=== PATIENT | female | born 1965 | race Caucasian/White ===

== ENCOUNTER 2018-06-13 09:47 | Emergency (ER) | payer OTHER ==
[~2018-06-13] VITALS: Ht 160 cm; Wt 67.6 kg
[~2018-06-13 09:47] MED LIST: ADVIL COLD &1 TABLET PO; ALBUTEROL2.5 MG/3 M IH; ALLEGRA ALLERG180 MG PO; ASMANEX TWISTHALER IH; BENADRYL50 MG PO; EPIPEN 2-PAK 0.3 MG; HYDROCODON-ACE1 EAC1 PO; MOTRIN800 MG PO; NEXIUM40 MG PO; NORCO 5/3251 TABLET PO; PHENOBARBITAL97.2 MG PO; PREDNISONE10 M1 PO; PREDNISONE20 MG PO; PROMETHAZINE HC25 M1 PO; PROVENTIL HFA6.7 GM IH; SINGULAIR10 MG PO; TESSALON200 MG PO; ZITHROMAX Z-PA250 MG PO
[2018-06-13 10:43] LABS: APPEARANCE CLEAR ((CLEAR)); BILIRUBIN NEGATIVE; BLOOD NEGATIVE; COLOR STRAW ((YELLOW)); GLUCOSE (STRIP) NEGATIVE; KETONES NEGATIVE; LEUKOCYTES NEGATIVE; NITRITE NEGATIVE; PROTEIN (STRIP) NEGATIVE; SPECIFIC GRAVITY 1.009 (1.000-1.030); UROBILINOGEN 0.2 MG/DL (0.2-1.0)
[2018-06-13 10:52] LABS: HEMATOCRIT 39.7 % (36.0-46.0); HEMOGLOBIN 13.8 G/DL (11.9-15.5); MCH 30.3 PG (29.0-34.0); MCHC 34.8 G/DL (30.0-36.0); MCV 87.3 FL (83-99); PLATELET COUNT 259 K/uL (156-360); RBC DIS.WIDTH-CV 12.4 % (11.8-14.6); RBC DIS.WIDTH-SD 39.7 % (39-53); RED BLOOD COUNT 4.55 M/uL (3.80-5.20); WHITE BLOOD COUNT 5.2 K/uL (4.1-10.2)
[2018-06-13 11:08] LABS: ALBUMIN 4.4 g/dL (3.2-4.8)
[2018-06-13 11:09] LABS: CHLORIDE 107 mEq/L (99-109); POTASSIUM 3.6 mEq/L (3.7-5.4); SODIUM 141 mEq/L (136-147)
[2018-06-13 11:11] LABS: GLUCOSE 130 mg/dL (70-99); TOTAL PROTEIN 6.8 g/dL (6.4-8.3)
[2018-06-13 11:13] LABS: TOTAL BILIRUBIN 0.3 mg/dL (0.0-1.0)
[2018-06-13 11:14] LABS: ALKALINE PHOSPHATASE 105 IU/L (3-129)
[2018-06-13 11:15] LABS: CREATININE 0.8 mg/dL (0.6-1.3); GFR ESTIMATE (CALCULATED) > 59 mL/min/
[2018-06-13 11:16] LABS: AST (GOT) 14 IU/L (2-34); UREA NITROGEN (BUN) 11 mg/dL (9-23)
[2018-06-13 11:17] LABS: ALT (GPT) 18 IU/L (3-49)
[2018-06-13] MEDS ORDERED: NORCO 5/3251 TABLET PO (11:27)
[2018-06-13 11:40] VITALS: BP 154/92
== END 2018-06-13 11:51 | disposition home or self-care (01) ==
LOC: EME 09:47
PROVIDERS: Nurse Practitioner Family
DX: M54.41 Lumbago with sciatica, right side (principal); G89.29 Other chronic pain; R10.9 Unspecified abdominal pain; J43.9 Emphysema, unspecified; K21.9 Gastro-esophageal reflux disease without esophagitis; J45.909 Unspecified asthma, uncomplicated; F41.9 Anxiety disorder, unspecified; Z86.69 Personal history of other diseases of the nervous system and sense organs; Z88.5 Allergy status to narcotic agent; Z88.2 Allergy status to sulfonamides; Z88.0 Allergy status to penicillin; Z88.6 Allergy status to analgesic agent; Z91.013 Allergy to seafood
CPT/HCPCS: 74176; 80053; 81003; 85027; 99281; 99284